=== PATIENT | male | born 1955 | race Caucasian/White ===

== ENCOUNTER 2016-09-09 11:30 | Day surgery (SDC) | payer OTHER ==
[2016-09-09] VITALS (8 sets, daily range): BP systolic 105–133; BP diastolic 60–84; PULSE 64–81; RESP 16–21; O2SAT 96–99
[~2016-09-09] VITALS: Ht 185.4 cm; Wt 125.0 kg
[~2016-09-09 11:30] MED LIST: CeFAZolin Inj 3 Gm/ D5W 50 mL Bag IV ONE; HYDR-3825 PO; ONDA4TAB6 PO; TIROSINT PO
[2016-09-09] MEDS ORDERED: Bupivacaine-MPF 0.25% 30 mL Inj ONE (11:31)
[2016-09-09] MEDS ORDERED: Rocuronium 10 mg/mL 5 mL Inj ONE (11:31)
[2016-09-09] MEDS ORDERED: Phenylephrine 10,000 mCg/mL Inj ONE (11:31)
[2016-09-09] MEDS ORDERED: fentaNYL-PF 50 mCg/mL 2 mL Inj ONE (11:31)
[2016-09-09] MEDS ORDERED: Neostigmine 1 mg/mL 5 mL Inj ONE (11:31)
[2016-09-09] MEDS ORDERED: Glycopyrrolate 0.2 mg/mL 5 mL Inj ONE (11:31)
[2016-09-09] MEDS ORDERED: Succinylcholine Chloride 20 mg/mL 5 mL Inj ONE (11:31)
[2016-09-09] MEDS ORDERED: Dexamethasone 4 mg/mL Inj ONE (11:31)
[2016-09-09] MEDS ORDERED: Ondansetron 2 mg/mL 2 mL Inj ONE (11:31)
[2016-09-09] MEDS ORDERED: Propofol 10,000 mCg/mL 20 mL Inj ONE (11:31)
[2016-09-09] MEDS: Lactated Ringer's 1,000 ML IV SCH ×2 (11:54→13:36)
[2016-09-09] MEDS ORDERED: CeFAZolin Inj 3 Gm/ D5W 50 mL Bag IV ONE (12:29)
[2016-09-09] MEDS ORDERED: Lidocaine 1%-Epi 1:100,000 20 mL Inj INFILTRATE ONE (13:46)
[2016-09-09] MEDS ORDERED: EPHEDrine Sulfate 50 mg/mL Inj IVPUSH PRN (14:45)
[2016-09-09] MEDS ORDERED: fentaNYL-PF 50 mCg/mL 2 mL Inj IVPUSH PRN (14:45)
[2016-09-09] MEDS ORDERED: Lactated Ringer's 500 ML IV PRN (14:45)
[2016-09-09] MEDS ORDERED: Phenylephrine 10,000 mCg/mL Inj IVPUSH PRN (14:45)
[2016-09-09] MEDS ORDERED: hydrOXYzine Inj 25 MG/1 mL SDV IM PRN (14:45)
[2016-09-09] MEDS ORDERED: Ondansetron 2 mg/mL 2 mL Inj IVPUSH PRN (14:45)
[2016-09-09] MEDS ORDERED: hydrALAZINE 20 mg/mL Inj IVPUSH PRN (14:45)
[2016-09-09] MEDS ORDERED: Labetalol 5 mg/mL 4 mL Inj IV PRN (14:45)
[2016-09-09] MEDS ORDERED: Atropine 0.4 mg/mL Inj IVPUSH PRN (14:45)
[2016-09-09] MEDS ORDERED: EPHEDrine Sulfate 50 mg/mL Inj IM PRN (14:45)
[2016-09-09] MEDS ORDERED: Lactated Ringer's 1,000 ML IV SCH (14:45)
[2016-09-09] MEDS ORDERED: MetoCLOpramide 5 mg/mL 2 mL Inj IVPUSH PRN (14:45)
[2016-09-09] MEDS ORDERED: HYDROmorphone 1 mg/mL Inj IVPUSH PRN (14:45)
--- NOTE | 2016-09-09 14:45 | PCM.HPANE ---
Patient Data Surgeon Admitting Provider: Attending Provider:Chauncey Nieto DO Primary Care Physician:Jeffrey Luna MD Other Provider:[place] Anesthesia Reason for Visit Left Shoulder Ac Joint Arthritis Ht/WT & BMI Height (Feet): 6 Height (Inches): 1 Weight (Kilograms): 125 Body Mass Index 36.00 Allergies Coded Allergies: No Known Allergies (Unverified , 09/09/16) Past Anesthesia History Anesthesia History: Positive for:: Anesthesia Reactions (PONV), Denies:: Fam Anesthesia Reaction, Fam Malignant Hypertherm, Malignant Hyperthermia Diabetes History Hx Diabetes?: No MRSA MRSA: No Medications Hypertension Medication: No Home Meds Incl Beta Shala: No Reported Medications Hydrocodone-Acetaminophen 7.5-325 mg 1 Each Tablet1-2 Tablet PO Q4H PRN For Pain Ref 0 09/03/16 Ondansetron (Zofran)4 Mg Tablet4 Mg PO Q8H PRN For Nausea 09/03/16 [Tirosint] No Conflict [id number] Mcg PO DAILY 09/07/15 Discontinued Reported Medications Ibuprofen 200 Mg [id number] Mg PO QID PRN For Pain Ref 0 09/07/15 History History of ENT Problems?: No Hx of Heart Problems?: Yes Cardiovascular History: Denies:: Heart Murmur Hypertension (HYPERLIPIDEMIA) Valvular Heart Disease Hx of Respiratory Problem?: Yes Respiratory History: Positive for:: Use of C-PAP Machine (NNAMDI+ USES CPAP ) Hx Neurologic Problems?: No Hx of GI Problems?: No Hx of Problems?: No Male Hx: Denies:: Prostate Problems Scrotal Mass Testicular Surgery Skin History: Denies:: History Skin Disorders? Pressure Ulcers Hx Musculoskeletal Problems?: Yes Musculoskeletal History: Positive for:: Musculoskeletal Trauma (S/P LT SHOULDER/BICEP RPR) Osteoarthritis (KNEES LT SHOULDER AC JOINT ARTHRITIS=CURRENT PROBLEM) Hx of Psycho/Social Problems?: Yes Psycho Social History: Positive for:: Anxiety Hx Surgeries?: Yes (LT SHOULDER/BICEP RPR) Hx Any Other Health Problems?: Yes Other History: Positive for:: Thyroid Disease (hypoT4) Denies:: Cancer Endocrine Disease Hospitalization History Blood Transfusions: Denies:: Blood Transfusions Hx Diabetes: No Hx Alcohol Use: NoHx Substance Use: No Smoking Status: Smoker Current Status UNK Have You Smoked inLast 12 mo: No Stop/Bang S-Snoring: Do You Snore Loudly: Yes T-Tired: feel tired, fatigued: Yes O-Obsered: Observed not breath: Yes P-Blood Pressure: treated: No B- Body Mass Index > 35 kg/m2: Yes A- Age over 50: Yes N- Neck Large Circumference: Yes G- Gender Male: Yes NNAMDI Total Score: 7 NNAMDI Risk Assessment: High Risk, =/>3 Yes Risk Assessment Category Category 1A: Patient has history of documented sleep apnea, and HAS NOT received any narcotic, sedative or anesthesia administration during this stay. Category 1B: Patient has history of documented sleep apnea, and HAS received any narcotic , sedative or anesthesia administration during this stay Category 2: Patient has SUSPECTED Obstructive Sleep Apnea, and HAS received any narcotic , sedative or anesthesia administration during this stay. Category 3: Patient has SUSPECTED Obstructive Sleep Apnea and HAS NOT received narcotic, sedative or anesthesia administration during this stay. Category 4: Outpatient in Procedural Areas with known sleep apnea or who screen positive for High Risk via the STOP/BANG questionnaire. Exam Exam Vital Signs Vital Signs Date Time Temp Pulse Resp B/P Pulse Ox O2 Delivery O2 Flow Rate FiO2 09/09/16 11:59 36.2 68 16 120/81 97 Room Air 09/09/16 11:57 CPAP/BIPAP General Appearance: Alert, Oriented X3, Cooperative, No Acute Distress HEENT/AIRWAY: MP 2 Lungs: Clear to Auscultation, Normal Air Movement Heart: Exam Unremarkable, Regular Rate/Rhythm, No Murmurs/Rubs/Gallops Meds/Labs/Diagnostics Admission Meds Current Medications Lactated Ringer's (Lr) 1,000 ml @ 120 mls/hr Q8H20M IV Last administered on t 11:54; Start 09/09/16 at 05:00; Stop 09/09/16 at 13:19 Plan Impression Patient chart reviewed, patient interviewed and anesthestic plan with risks, benefits, and alternatives discussed, and informed consent obtained. NPO Status: 09/08 ASA Physical Status: ASA2 Mod Systemic Disease Anesthetic Support Modalities: Pride Scope Anesthetic Plan: GA, Regional Block Bene/Risks/Altern/Consents: Yes HP Complete Prior to Induction: Yes Chauncey Zarate MD Sep 09, 2016 12:26
[2016-09-09] MEDS ORDERED: HYDROcodone-APAP 7.5-325 mg Tablet PO PRN (15:35)
--- NOTE | 2016-09-09 15:38 | PCM.ANEP1 ---
Post Anesthesia Phase 1 PACU Phase 1 Assessment Vital Signs Vital Signs Date Time Temp Pulse Resp B/P Pulse Ox O2 Delivery O2 Flow Rate FiO2 09/09/16 11:59 36.2 68 16 120/81 97 Room Air 09/09/16 11:57 CPAP/BIPAP Anesthetic Administered: GA, Regional Block Level of Alertness: Awake, talking CHÁVEZ's with Equal Strength: Yes Pain: No Nausea or Vomiting: No Oxygen Delivery: Simple Mask Lungs: Clear to Auscultation, Normal Air Movement Summary VSS Chauncey Zarate MD Sep 09, 2016 15:38
--- NOTE | 2016-09-09 15:41 | PCM.ANEP2 ---
Post Anesthesia Evaluation ASA/CMS Post Anesthesia VS in Patient's Normal Range?: Yes Resp Stable; Airway Patent?: Yes CV Function & Hydration Stable: Yes Mental Status Recovered?: Yes Pain control Satisfactory?: Yes N/V Control Satisfactory?: Yes Chauncey Zarate MD Sep 09, 2016 15:41
--- NOTE | 2016-09-09 15:54 | OP ---
[address] [address] OPERATIVE REPORT PATIENT: ANGEL REYNA : 1955 MR#: [id number] ADMIT: 09/09/2016 JOB ID: [id number] DATE OF SURGERY: 09/09/2016 PREOPERATIVE DIAGNOSIS(ES): Left shoulder acromioclavicular joint arthritis with impingement. POSTOPERATIVE DIAGNOSIS(ES): Left shoulder acromioclavicular joint arthritis with impingement. PROCEDURE: Left shoulder video arthroscopy with subacromial decompression and distal clavicle resection. SURGEON: Chauncey Nieto DO. CLEANING MATRON: Katie Coates PA-C. INDICATIONS: The patient is a 60-year-old male with left shoulder acromioclavicular joint arthritis who had failed conservative measures and wished to proceed with a left shoulder arthroscopy with distal clavicle excision. We discussed the risks, benefits, and possible complications of surgery including, but not limited to, injury to nerves and vessels, infection, bleeding, incomplete relief of symptoms, stiffness, need for additional procedures. The patient had good understanding. All questions were answered. He wished to proceed. PROCEDURE IN DETAIL: The patient was brought to the operating room. He was given a preoperative antibiotic and interscalene block, as well as a general anesthetic. He was placed comfortably into a beach chair position. The left shoulder was sterilely prepped and draped. An incision was made over the posterolateral shoulder for a posterolateral portal. Inspection at the glenohumeral joint was undertaken. He was found to be free of any articular pathology, any significant articular cartilage pathology. His superior labrum had some degenerative fraying and tearing, and this was debrided with a shaver. His subscapularis was intact. His supraspinatus was intact. The scope was then removed and replaced into the subacromial space, and a subacromial decompression was undertaken. He was noted to have fairly large spurring of the undersurface of the acromion anteriorly and laterally. After the bursa was resected, the bone was removed with a bur in order to open up the space for the rotator cuff. The cuff was inspected, found to be intact. The distal clavicle was then addressed, and he had significant impinging inferior osteophytes, which were resected. I then proceeded to remove about 8 mm of bone from the distal clavicle to have a 1 cm gap. Care was taken to ensure that the bone was removed in its entirety anterior to posterior, superficial to deep, and that the superior capsule was maintained. The scope was then removed, and the portals were closed with interrupted nylon suture. Sterile dressings were applied. The patient tolerated the procedure well. Blood loss was minimal. POSTOPERATIVE PROTOCOL: Have the patient maintain his arm in a sling for comfort. He may begin using it as he is able to tolerate and begin working on range of motion. Will have him follow up in the office in two weeks or sooner, if needed. He was given a prescription for [place] 7.5/325 for pain.
== END 2016-09-09 23:59 | disposition home or self-care (01) ==
LOC: SAS 11:30
PROVIDERS: ATTEND Orthopaedic Surgery
DX: M75.42 Impingement syndrome of left shoulder (principal); M19.012 Primary osteoarthritis, left shoulder; G47.33 Obstructive sleep apnea (adult) (pediatric)
CPT/HCPCS: 29824; 29826; J0330; J0690; J1100; J2250; J2370; J2405; J2710; J7120